=== PATIENT | male | born 1945 | race Two or more races ===

== ENCOUNTER 2017-12-16 09:22 | Emergency (ER) | payer MEDICARE ==
[~2017-12-16] VITALS: Ht 165.1 cm; Wt 85.4 kg
[2017-12-16 09:26] VITALS: BP 139/82
== END 2017-12-16 10:31 | disposition home or self-care (01) ==
LOC: ED 09:50
DX: N48.1 Balanitis (principal); E11.9 Type 2 diabetes mellitus without complications; Z86.73 Personal history of transient ischemic attack (TIA), and cerebral infarction without residual deficits
CPT/HCPCS: 99283

== ENCOUNTER 2017-12-24 10:29 | Emergency (ER) | payer MEDICARE | END 2017-12-24 10:44 | LOC: ED 10:37 | DX: R68.89 Other general symptoms and signs (principal); Z76.0 Encounter for issue of repeat prescription; Z53.21 Procedure and treatment not carried out due to patient leaving prior to being seen by health care provider ==

== ENCOUNTER 2018-04-18 23:33 | Emergency (ER) | payer MEDICARE ==
[~2018-04-18] VITALS: Ht 172.7 cm; Wt 102.0 kg
--- NOTE | 2018-04-19 | NUR ---
PT BIB [facility] with complaint of being unable to void. pt straight caths at home and has been unable to for the past two days due to living in hotel. Pt vss. awaiting erp. registration employee Emilia at bedside to translate, as pt is icelandic speaking only. Pt verbalizes understanding of poc.
[2018-04-19 00:36] VITALS: BP 141/85
--- NOTE | 2018-04-19 00:39 | NUR ---
pt requesting to leave. pt states he doesn't want to stay anymore. Dr. Griffith notified of pt wishes.
--- NOTE | 2018-04-19 00:52 | NUR ---
[facility] D/C. PT PROVIDED WITH D/C SUMMARY. ALL QUESTIONS ANSWERED. PT AMBULATED TO REGISTRATION DESK WITH STEADY GAIT FOR DC HOME.
[2018-04-19 01:05] LABS: MICROSCOPIC AUTO
[2018-04-19 01:09] LABS: CULTURE INDICATED? NO
== END 2018-04-19 00:54 | disposition home or self-care (01) ==
LOC: ED 04-19 00:04
DX: N40.0 Benign prostatic hyperplasia without lower urinary tract symptoms (principal); F10.120 Alcohol abuse with intoxication, uncomplicated; R33.9 Retention of urine, unspecified; E11.9 Type 2 diabetes mellitus without complications; Z86.73 Personal history of transient ischemic attack (TIA), and cerebral infarction without residual deficits; Y90.9 Presence of alcohol in blood, level not specified
CPT/HCPCS: 51701; 81001; 99283; P9612

== ENCOUNTER 2018-04-19 08:26 | Emergency (ER) | payer MEDICARE ==
[~2018-04-19] VITALS: Ht 175.3 cm; Wt 87.3 kg
[2018-04-19 08:38] VITALS: BP 111/63
--- NOTE | 2018-04-19 09:00 | NUR ---
DR MORGAN AT BEDSIDE TO [facility] PT.
--- NOTE | 2018-04-19 09:20 | NUR ---
15F HIGGINS CATH PLACED PER ORDER. PALE CLEAR URINE RETURN.
--- NOTE | 2018-04-19 09:38 | NUR ---
USED FURNACE COMBINATION ANALYST ROSA [id number], ATTEMPT TO INFORM PT THAT HE WILL BE GOING HOME WITH CATHETER WITH A LEG BAG. PT FALLING ASLEEP. BECOMES HOSTILE WHEN WOKEN UP. PT TOLD THAT HE WILL NEED TO FOLLOW UP WITH UROLOGY. PT STATES HAS APPT IN MAY. ENC PT TO CALL TODAY AND TRY TO BE SEEN SOONER. PT RELATES THAT HE HASNT SLEPT IN 2 NIGHTS THAT IS WHY HE IS FALLING ASLEEP. DRINKS ETOH DAILY. PT WITH APPROX 1500MLS URINE OUTPUT. CLEAR YELLOW.
--- NOTE | 2018-04-19 10:05 | NUR ---
PT MOSTLY SLEEPING, AROUSES TO NAME. LEG BAG PLACED ON PT. PT WANTING [facility] OUT. WAS EXPLAINED TO PT WITH BOILER ASSISTANT OPERATOR THAT CATHETER WOULD STAY IN AND TO FOLLOW UP WITH UROLOGY. PT WANTING TO SPEAK TO MD. DR MORGAN TO ROOM AND DISCUSSED WITH PT. PT PUTTING PANTS ON.
== END 2018-04-19 10:13 | disposition home or self-care (01) ==
LOC: ED 09:58
DX: N40.0 Benign prostatic hyperplasia without lower urinary tract symptoms (principal); R33.9 Retention of urine, unspecified; E11.9 Type 2 diabetes mellitus without complications
CPT/HCPCS: 51702; 99284

== ENCOUNTER 2018-04-20 10:57 | Emergency (ER) | payer MEDICARE ==
[~2018-04-20] VITALS: Ht 177.8 cm; Wt 100.0 kg
[2018-04-20 11:25] VITALS: BP 126/73
--- NOTE | 2018-04-20 11:30 | NUR ---
pt brought directly from lobby to ed room 16 for triage
--- NOTE | 2018-04-20 12:01 | NUR ---
aircraft metalsmith [id number] used for d/c instructions.
== END 2018-04-20 12:05 | disposition home or self-care (01) ==
LOC: ED 11:59
DX: N40.1 Benign prostatic hyperplasia with lower urinary tract symptoms (principal); R33.8 Other retention of urine; E11.9 Type 2 diabetes mellitus without complications; Z86.73 Personal history of transient ischemic attack (TIA), and cerebral infarction without residual deficits
CPT/HCPCS: 51701; 99283; P9612

== ENCOUNTER 2018-06-09 06:47 | Emergency (ER) | payer BC, MEDICARE ==
[~2018-06-09] VITALS: Ht 167.6 cm; Wt 86.9 kg
[2018-06-09 06:54] VITALS: BP 132/77
[2018-06-09 07:31] LABS: BASOPHILS # (AUTO) 0.04 x10^3/uL (0-0.1); BASOPHILS % (AUTO) 1 % (0-1); EOSINOPHILS # (AUTO) 0.18 x10^3/uL (0-0.4); EOSINOPHILS % (AUTO) 2 % (1-7); LYMPHOCYTES # (AUTO) 1.71 x10^3/uL (1-3.4); LYMPHOCYTES % (AUTO) 21 % (22-44); MD NO; MEAN CORPUSCULAR HGB CONC 33.6 g/dL (33.2-36.2); MEAN CORPUSCULAR VOLUME 89.2 fL (81-97); MEAN PLATELET VOLUME 7.6 fL (7.4-10.4); MONOCYTES # (AUTO) 0.38 x10^3/uL (0.2-0.8); MONOCYTES % (AUTO) 5 % (2-9); NEUTROPHILS # (AUTO) 5.81 x10^3/uL (1.8-6.8); NEUTROPHILS % (AUTO) 72 % (42-75); PLATELET COUNT 301 x10^3/uL (130-400); RED BLOOD COUNT 4.69 x10^6/uL (4.38-5.82); RED CELL DISTRIBUTION WIDTH 13.4 % (9.4-14.8)
[2018-06-09 07:42] LABS: ANION GAP 10 mmol/L (5-15); CALCIUM 8.7 mg/dL (8.5-10.1); CHLORIDE 112 mmol/L (98-107)
--- NOTE | 2018-06-09 08:00 | NUR ---
PT REFUSED TO STAY FOR PAPERWORK AND RX. STATES "I JUST WANT MY WORK NOTE AND I'M LEAVING". PT LEFT W/O RECEIVING PAPERWORK.
== END 2018-06-09 08:03 | disposition left against medical advice (07) ==
LOC: ED 07:57
DX: M17.11 Unilateral primary osteoarthritis, right knee (principal); E11.9 Type 2 diabetes mellitus without complications; Z86.73 Personal history of transient ischemic attack (TIA), and cerebral infarction without residual deficits
CPT/HCPCS: 36415; 80048; 85025; 99284

== ENCOUNTER 2020-03-10 10:34 | Emergency (ER) | payer BC, MEDICARE ==
[~2020-03-10] VITALS: Ht 170.2 cm; Wt 86.0 kg
[2020-03-10 10:43] VITALS: BP 133/72
--- NOTE | 2020-03-10 11:21 | NUR ---
PT LEFT AMA, CHOSE NOT TO BE TAKEN BACK INTO ROOM.
== END 2020-03-10 11:26 | disposition left against medical advice (07) ==
LOC: ED 11:15
DX: S09.90XA Unspecified injury of head, initial encounter (principal); W22.8XXA Striking against or struck by other objects, initial encounter; Y93.89 Activity, other specified; Y92.89 Other specified places as the place of occurrence of the external cause; Y99.8 Other external cause status
CPT/HCPCS: 99281

== ENCOUNTER 2020-09-20 20:01 | Emergency (ER) | payer BC, MEDICARE ==
[~2020-09-20] VITALS: Ht 157.5 cm; Wt 80.1 kg
[2020-09-20 20:21] VITALS: BP 147/86
== END 2020-09-20 21:48 | disposition left against medical advice (07) ==
LOC: ED 21:42
DX: R06.00 Dyspnea, unspecified (principal); R94.31 Abnormal electrocardiogram [ECG] [EKG]; E11.9 Type 2 diabetes mellitus without complications
CPT/HCPCS: 71046; 93005; 99283